=== PATIENT | female | born 1945 | race Caucasian/White ===

== ENCOUNTER 2021-12-04 11:54 | Outpatient (CLI) | payer MEDICARE, SELFPAY ==
--- NOTE | 2021-12-04 12:20 | RAD_ITS ---
STUDY: X-RAY - ABDOMEN/PELVIS REASON FOR EXAM: Female, 76 years old. CALCULUS OF KIDNEY TECHNIQUE: Single AP view of the abdomen / pelvis. COMPARISON: None. FINDINGS: Normal visualized lung bases. There is an unremarkable bowel gas pattern. There is no demonstrated free abdominal air. Right ureteral stent. No obvious renal ureteral stone. Normal soft tissue structures. Normal visualized osseous structures. RAD/Abdomen Single View IMPRESSION: Right ureteral stent. Electronically Signed: Ilya Arteaga MD at 17:12 EST Tel , Service support ,
== END 2021-12-04 23:59 | disposition short-term general hospital (02) ==
LOC: RAD.FUTURE 12:01 → RAD 12:09
PROVIDERS: PCP Family Medicine; Referring Provider Urology; Visit Provider Urology
DX: N20.0 Calculus of kidney (principal)
CPT/HCPCS: 74018

== ENCOUNTER → 2023-01-22 | Outpatient (CLI) | payer MEDICARE, SELFPAY ==
--- NOTE | 2023-01-22 10:20 | RAD_ITS ---
STUDY: X-RAY - ABDOMEN/PELVIS REASON FOR EXAM: Female, 77 years old patient with overactive bladder. TECHNIQUE: Two AP supine views of the abdomen and pelvis. COMPARISON: Radiograph of the abdomen dated December 04, 2021. FINDINGS: Normal visualized lung bases. There is an unremarkable bowel gas pattern. There is no obvious organomegaly, mass, or dilated bowel. Multiple calcifications in the left upper quadrant may represent splenic granulomas. There are also calcifications visible in the right upper quadrant that may represent nonobstructive intrarenal calculi. Left-sided pelvic calcifications may represent phleboliths. Normal soft tissue structures. Normal visualized osseous structures. RAD/Abdomen Single View IMPRESSION: No radiographic evidence of acute intra-abdominal disease. Electronically Signed: Nicolette Sidhu MD at 0:39 EST ,
== END | disposition home or self-care (01) ==
PROVIDERS: Visit Provider Urology
DX: N32.81 Overactive bladder (principal)
CPT/HCPCS: 74018

== ENCOUNTER → 2024-01-23 | Outpatient (CLI) | payer MEDICARE, SELFPAY ==
--- NOTE | 2024-01-23 13:48 | CT_ITS ---
STUDY: CT ABDOMEN AND PELVIS WITHOUT CONTRAST REASON FOR EXAM: Female, 78 years old. CALCULUS OF KIDNEY,OVERACTIVE BLADDER RADIATION DOSAGE (If Supplied By Facility): CTDIvol = ( 14.64 ) mGy, DLP = ( 720.31 ) mGycm TECHNIQUE: Transaxial images were obtained from the dome of the diaphragm to the symphysis pubis without oral contrast, and without intravenous contrast. Sagittal and coronal images were reconstructed. Individualized dose optimization techniques were used for this CT. COMPARISON: Comparison is made with prior study dated April 10, 2011. FINDINGS: Minimal degree of left basilar scarring. Coronary artery calcification. Normal liver. There is nonspecific position of the gallbladder most likely secondary to the prior cholecystectomy. There are multiple benign calcified granulomata of the spleen. Normal pancreas. There is a small, circumscribed, smooth, low attenuation right adrenal mass, consistent with an adrenal adenoma. This measures 9.4 mm. Normal left adrenal gland. The C7 0.3 cm x 5.8 cm cyst in the mid lateral inferior aspect of the right kidney. Nonobstructive right intrarenal calculi are seen. The largest is in the lower pole and measures 7.1 mm. Dominant cyst in the anterior medial inferior pole of the left kidney measuring 4.2 cm x 4.1 cm. There is a small hiatal hernia. Normal small intestine. Normal colon. There are surgical clips in the region of the appendix consistent with a prior appendectomy. There is diffuse atherosclerotic calcification of the abdominal aorta and its major visceral branches, without a demonstrated aneurysm. Normal inferior vena cava. Normal retroperitoneum. Normal urinary bladder. There is absence of the uterus consistent with a prior hysterectomy. Normal abdominal wall. There are mild degenerative changes of the visualized lumbar spine. CT/Abdomen/Pelvis without Cont IMPRESSION: Bilateral renal cysts. Nonobstructive bilateral intrarenal calculi. Electronically Signed: Erik Phillip MD at 14:38 EST ,
--- OUTSIDE RECORDS SUMMARY | 2024-01-23 15:47 | XMS RPT_ITS | CCD ---
Author Name Unknown Address [address] [place] [address] Organization [facility] Care Team Providers Care Chart Calculator Name Role Phone AMARILIS GUERRA, JOSE LUIS Browne Primary Care Physician [phone] STU CROW DO Primary Care Physician Jose Luis Arevalo Primary Care Provider [phone] Stu Crow DO Primary Care Provider [phone] JOSE LUIS AREVALO Primary Care Unavailab RIC Burrows Referring Unavailable RIC DE LA ROSA Attending Unavailable LEANDRO CARLIN Attending Unavailable DIANA PEREZ Referring Unavailable STU CROW Primary Care Unavailable MARIMAR TAYLOR MD Attending Unavail able STU CROW DO Primary Care Unavailable STU CROW DO Attending Unavailable STU CROW DO Primary Care Unavailable STU CROW DO Attending Unavailable STU CROW DO E Primary Care Unavailable STU CROW DO Attending Unavailable STU CROW DO Primary Care Unavailable JADEN RUSHING MD Attending Unavailable STU CROW DO Primary Care Unavailable JADEN RUSHING MD Attending Unavailable STU CROW DO Primary Care Unavailable LINDA ROA-NUBIA ROB Attending Unavailab STU Velasquez DO Primary Care Unavailable SUT CROW DO Attending Unavailable STU CROW DO Primary Care Unavailable ROCK RAO-AVI ROB Attending UnavailSTU Herrera DO Primary Care Unavailable ALDA ROA-ASSISTANT ATTORNEY GENERALKATHY Attending UnavailSTU Herrera DO Primary Care Unavailable JESUS GUERRA, DR JESSIE Jarrell Attending STU Felipe DO Primary Care Unavailable Allergies Allergy Classification Reported Allergen(s) Allergy Type Date of Onset Reaction(s) Facility (14 sources) Penicillin; Translations: [penicillins] Drug Allergy michelle [facility] (3 sources) Penicillin G; Translations: [PENICILLIN G] Drug Allergy 04-26-2022 Other: See Comments, [facility] Medications Current Medications Medication Drug Class(es) Dates Sig (Normalized) Sig (Original) acetaminophen 500 mg oral tablet (4 sources) Start: 11-04-2019 acetaminophen 500 mg oral tablet Dose : 1,000 mg = 2 tab(s), Oral, q6h, PRN for pain, # 100 tab(s), 0 Refill(s) Start Date: 11/04/19 Status: Ordered Completed/Discontinued Medications Medication Drug Class(es) Dates Sig (Normalized) Sig (Original) cholecalciferol 0.125 mg oral tablet (1 source) Vitamin D take 1 tablet by mouth once daily cholecalciferol (VITAMIN D-3) 5,000 unit tab Take 5,000 Units by mouth once daily. 0 Active Problems Active Problems Problem Classification Problem Date Documented Da te Episodic/Chronic Acute cerebrovascular disease (2 sources) Cerebral infarction due to stenosis of carotid artery; Translations: [Ischemic stroke] 01-15-2024 Chronic Blindness and vision defects (6 sources) Visual impairment 09-26-2022 Chronic Calculus of urinary tract (14 sources) Kidney stone; Translations: [History of calculus of kidney] 10-26-2014 Episodic Cardiac dysrhythmias (6 sources) Bradycardia 11-09-2022 Episodic Chronic kidney disease (4 sources) Chronic kidney disease stage 2 07-08-2023 Chronic Conditions associated with dizziness or vertigo (15 sources) Vertigo; Translations: [Lightheadedness] 09-09-2017 Episodic Diabetes mellitus without complication (4 sources) Hyperglycemia 07-08-2023 Episodic Disorders of lipid metabolism (3 sources) Mixed hyperlipidemia 09-30-2023 Chronic Esophageal disorders (10 sources) Gastroesophageal reflux disease 07-02-2022 Chronic Essential hypertension (16 sources) Diastolic hypertension; Translations: [Essential hypertension] Onset: 4 09-01-2021 Chronic Headache; including migraine (1 source) Headache; Translations: [Headache, unspecified] Onset: Episodic Other circulatory disease (1 source) Labile blood pressure 01-15-2024 Episodic Other connective tissue disease (1 source) Pain of right lower leg; Translations: [Pain in right lower leg] Onset: 3 Episodic Other diseases of bladder and urethra (1 source) Overactive bladder; Translations: [Overactive bladder] 08-11-2023 Chronic Other ear and sense organ disorders (12 sources) Tinnitus 10-31-2021 Episodic Other gastrointestinal disorders (10 sources) Constipation 07-02-2022 Episodic Other gastrointestinal disorders (2 sources) Dysphagia 07-02-2022 Episodic Other nutritional; endocrine; and metabolic disorders (6 sources) Body mass index 30+ - obesity 10-06-2022 Chronic Other skin disorders (6 sources) Dry skin 01-07-2023 Episodic Other upper respiratory disease (10 sources) Hoarse 07-02-2022 Episodic Other upper respiratory infections (2 sources) Upper respiratory infection 08-08-2022 Episodic Otitis media and related conditions (2 sources) Otitis media 08-08-2022 Episodic Prolapse of female genital organs (5 sources) Disorder of rectum; Translations: [Rectocele] Onset: 2 Chronic Residual codes; unclassified (10 sources) Edema of lower extremity 07-02-2022 Episodic Residual codes; unclassified (3 sources) Not for resuscitation 09-30-2023 Episodic Spondylosis; intervertebral disc disorders; other back problems (12 sources) Low back pain 11-15-2021 Episodic Unclassified (14 sources) Patient encounter status 12-16-2019 Varicose veins of lower extremity (4 sources) Varicose veins of lower extremity 07-08-2023 Episodic Past or Other Problems Problem Classification Problem Date Documented Da te Episodic/Chronic Genitourinary symptoms and ill-defined conditions (20 sources) Blood in urine; Translations: [Grade A2 albuminuria] Onset: 08-09-2023 11-15-2021 Episodic Results Test Name Value Interpretation Reference Range Facil ity Vital Signs Date Time Vital Sign Value Performing Clinician Facility 12-27-2023 14:20-0500 Body height 157.[address] JESSIE LEE MD [facility] 12-27-2023 14:20-0500 Body temperature 98.42 [degF] DR JESSIE LEE MD [facility] 12-27-2023 14:20-0500 Body weight [address] JESSIE LEE MD [facility] 12-27-2023 14:20-0500 Diastolic Blood Pressure Non-Invasive 82 mm[Hg] DR JESSIE LEE MD [facility] 12-27-2023 14:20-0500 Heart rate 97 /min DR JESSIE LEE MD [facility] 12-27-2023 14:20-0500 Respiratory rate 18 /min DR JESSIE LEE MD [facility] 12-27-2023 14:20-0500 Systolic Blood Pressure Non-Invasive 172 mm[Hg] DR JESSIE LEE MD [facility] 07-04-2023 08:33-0400 Body temperature 98.24 [degF] MARIMAR TAYLOR MD [facility] 07-04-2023 08:33-0400 Diastolic Blood Pressure Non-Invasive 73 1 MARIMAR TAYLOR MD [facility] 07-04-2023 08:33-0400 Heart rate 94 /min MARIMAR TAYLOR MD [facility] 07-04-2023 08:33-0400 Respiratory rate 16 /min MARIMAR TAYLOR MD [facility] 07-04-2023 08:33-0400 Systolic Blood Pressure Non-Invasive 179 1 MARIMAR TAYLOR MD [facility] 07-02-2023 09:29-0400 Body height 154.9 cm Leandro Carlin MD Work Phone: [facility] 07-02-2023 09:29-0400 Body weight 82.56 kg Leandro Carlin MD Work Phone: [facility] 10-12-2022 09:38-0500 Body height 156.2 cm Ric De La Rosa MD Work Phone: [facility] 10-12-2022 09:38-0500 Body weight 80.74 kg Ric De La Rosa MD Work Phone: [facility] Encounters Encounter Date Encounter Type Care Provider Facility Start: 01-20-2024 ambulatory NUBIA MCKEON SIGNAL PROCESSING ENGINEER-ASSISTANT ATTORNEY GENERAL F acility:B Start: 01-15-2024 End: 01-16-2024 ambulatory STU CROW DO Facility:B Start: 01-15-2024 End: 01-20-2024 ambulatory STU CROW DO Facility:[facility] Start: 01-15-2024 End: 01-19-2024 Outreach Lab STU CROW DO [facility] Start: 01-09-2024 End: 01-10-2024 ambulatory JADEN RUSHING MD Facility:[facility] Start: 01-02-2024 End: 01-03-2024 ambulatory JADEN RUSHING MD Facility:[facility] Start: 01-02-2024 End: 01-02-2024 Patient encounter procedure JADEN RUSHING MD [facility] Start: 12-27-2023 End: 12-27-2023 Emergency department patient visit DR JESSIE LEE MD Facility:[facility] Start: 12-27-2023 End: 12-27-2023 Emergency department patient visit DR JESSIE LEE MD [facility] Start: 12-24-2023 End: 12-25-2023 ambulatory STU CROW DO Facility:B Start: 08-09-2023 End: 08-14-2023 ambulatory AVI RUSS SIGNAL PROCESSING ENGINEER-ASSISTANT ATTORNEY GENERAL Facility:B Start: 08-09-2023 End: 08-13-2023 Outreach Lab [facility] SIGNAL PROCESSING ENGINEER-ASSISTANT ATTORNEY GENERAL [facility] Start: 07-17-2023 End: 07-18-2023 ambulatory KATHY LIZAMA SIGNAL PROCESSING ENGINEER-ASSISTANT ATTORNEY GENERAL Facility:B Start: 07-04-2023 End: 07-04-2023 Emergency department patient visit MARIMAR TAYLOR MD Facility:B Start: 07-04-2023 End: 07-04-2023 Emergency department patient visit MARIMAR TAYLOR MD [facility] Start: 07-02-2023 End: 07-02-2023 ambulatory LEANDRO CARLIN Facility:[facility] Start: 07-02-2023 End: 07-02-2023 Patient encounter procedure Leandro Carlin MD Work Phone: Urology Procedures Date Procedure Procedure Detail Performing Clinician Start: 07-02-2023 BLADDER SCAN [facility] Prov[facility] er Start: 07-02-2023 Urnls dip stick/tabl et rgnt auto w/o microscopy Leandro Carlin MD Work Phone: Start: 10-12-2022 Urnls dip stick/tabl et rgnt auto w/o microscopy Ric De La Rosa MD Work Phone: Appendectomy [facility] APR N-ASSISTANT ATTORNEY GENERAL Basal cell carcinoma of nose (disorder) [facility] SIGNAL PROCESSING ENGINEER-ASSISTANT ATTORNEY GENERAL Cataract (morphologi c abnormality) [facility] SIGNAL PROCESSING ENGINEER-ASSISTANT ATTORNEY GENERAL Plan of Treatment Date Care Activity Detail Author Start: 08-02-2023 Influenza vaccination INFLUENZA (#1) [facility] Start: 12-27-2022 COVID-19 VACCINE (6 - Moderna series) COVID-19 VACCINE (6 - Moderna series) [facility] Start: 12-02-2022 ADVANCE DIRECTIVE DISCUSSION ADVANCE DIRECTIVE DISCUSSION [facility] Start: 12-02-2022 DEPRESSION ASSESSMENT DEPRESSION ASS ESSMENT [facility] Start: 06-11-2022 COVID-19 VACCINE (5 - Booster for Moderna series) COVID-19 VACCINE (5 - Booster for Moderna series) [facility] Start: 12-02-2021 ADVANCE DIRECTIVE DISCUSSION ADVANCE DIRECTIVE DISCUSSION [facility] Start: 12-02-2021 DEPRESSION ASSESSMENT DEPRESSION ASS ESSMENT [facility] Start: 2008 BONE DENSITY BONE DENSITY [facility] Start: 2008 PNEUMOCOCCAL: 65+ (1 - PCV) PNEUMOCOCCAL: 65+ (1 - PCV) [facility] Start: 1993 SHINGRIX VACCINE (1 of 2) SIN GRIX VACCINE (1 of 2) [facility] Start: 1988 DIABETES SCREEN DIABETES SCREEN [facility] Start: 1962 Urine microalbumin profile DTAP,TDAP ,TD (1 - Tdap) [facility] Immunizations Immunization Date Immunization Notes Care Provider Fa [facility] 09-30-2023 influenza, high dose seasonal, preservative-free; Translations: [Fluad Quadrivalent PF ] DR JESSIE LEE MD [facility] 09-26-2022 influenza, high dose seasonal, preservative-free STU CROW DO [facility] 08-27-2022 COVID-19, mRNA, LNP- S, bivalent booster, PF, 30 mcg/0.3 mL dose; Translations: [[employer] COVID-19 (12y+) Bivalent Booster Vaccine PF] STU CROW DO [facility] Payers Date Payer Category Payer Medicare [employer] THP [employer] MDCR O [id number] 2008-Present [phone] [place] [id number] O [id number] 2008 Unknown [id number] 1943 Unknown [id number] 7 1943 Unknown [id number] 7 1943 Unknown [id number] 7 1943 Unknown [id number] 7 1943 Unknown [id number] 7 1943 Unknown [id number] 7 1943 Unknown [id number] 7 1943 Unknown [id number] 7 1943 Unknown [id number] [id number] 7 1943 Unknown [id number] 7 1943 Unknown [id number] 7 Social History Date Type Detail Facility Start: 03-23-2019 End: 10-12-2022 Never smoked tobacco (finding) [facility] Sex Assigned At Female [facility] Start: 10-12-2022 Tobacco use and exposure Smokeless tobacco non-user [facility] Start: 10-12-2022 End: 07-02-2023 Alcohol intake Ex-drinker (finding) [facility] Start: 1945 Sex Assigned At Not on file [facility] Start: 07-02-2023 History of Social function [facility] Start: 07-02-2023 Tobacco use panel [facility] National Score (1-100), lower number is lower risk 46 [facility] Functional Status Date Assessment Result Facility 07-04-2023 Functional Status Independent [facility] 07-04-2023 Functional Status Standard Safet y ID band on, Call device within reach, Bed in low position, Wheels locked [facility] Mental Status Date Assessment Result Facility 07-04-2023 Mental Status Orientation Oriented x 4 [facility] 07-04-2023 Mental Status [facility] Clinical Notes 01-01-2022 to 12-27-2023 Leandro Carlin MD - 07/02/2023 10:27 AM Pauline Martinez LPN - 07/02/2023 9:23 AM EDTPatient InstructionsRahumble De La Rosa MD - 10/12/2022 9:46 AM ESTLaboratoryRadiologyRadiologyRadiologyRadiology Note Date & Type Note Facility 12-27-2023 Hospital Discharge instructions Patient Education 12/27/2023 18:26:03 Headache, Unspecified Headache, Unspecified A number of things can cause headaches. The cause of your headache isn t clear. But it doesn t seem to be a sign of any serious illness. Headache affects almost everyone at some time. It is the most common reason people miss days from work or school. You could have a tension headache or a migraine headache. Stress can cause a tension headache. This can happen if you tense the muscles of your shoulders, neck, and scalp without knowing it. If this stress lasts long enough, you may develop a tension headache. It is not clear why migraines occur, but certain things called triggers can raise the risk of having a migraine attack. Migraine triggers may include emotional stress or depression, or by hormone changes during the menstrual cycle. Other triggers include control pills and other medicines, alcohol or caffeine, foods with tyramine (such as aged cheese, wine), eyestrain, weather changes, missed meals, and lack of sleep or oversleeping. Other causes of headache include: Viral illness with high fever Head injury with concussion Sinus, ear, or throat infection Dental pain and jaw joint (TMJ) pain More serious but less common causes of headache include stroke, brain hemorrhage, brain tumor, meningitis, and encephalitis. Home care Follow these tips when taking care of yourself at home: Don t drive yourself home if you were given pain medicine for your headache. Instead, have someone else drive you home. Try to sleep when you get home. You should feel much better when you wake up. Apply heat to the back of your neck to ease a neck muscle spasm. Take care of a migraine headache by putting an ice pack on your forehead or at the base of your skull. If you have nausea or vomiting, eat a light diet until your headache eases. If you have a migraine headache, use sunglasses when in the daylight or around bright indoor lighting until your symptoms get better. Bright glaring light can make this type of headache worse. Follow-up care Follow up with your healthcare provider, or as advised. Talk with your provider if you have frequent headaches. He or she can help figure out a treatment plan. By knowing the earliest signs of headache, and starting treatment right away, you may be able to stop the pain yourself. When to seek medical advice Call your healthcare provider right away if any of these occur: Your head pain suddenly gets worse after sexual intercourse or strenuous activity Your head pain doesn t get better within 24 hours You aren t able to keep liquids down (repeated vomiting) Fever of 100.4 F (38 C) or higher, or as directed by your healthcare provider Stiff neck Extreme drowsiness, confusion, or fainting Dizziness or dizziness with spinning sensation (vertigo) Weakness in an arm or leg or one side of your face You have trouble talking or seeing [phone] [employer]. [address] [place] [address]. All rights reserved. This information is not intended as a substitute for professional medical care. Always follow your healthcare professional's instructions. Follow Up Care 12/27/2023 14:14:08 With:MARYURI HINES Address: [address] [place] [address]- [phone] Business (1) When:2-4 days Comments:Return to ED if symptoms worsen With:STU CROW DO Address: [address] [facility] [place] [address] [phone] When:2-4 days [facility] 12-27-2023 Emergency department Discharge summary Discharge Instructions Thank you for allowing [facility] to assist you with your healthcare needs. The following is important discharge information regarding your hospital visit. Diagnosis from Today's Visit Head pain Headache What to Do Next Instructions from Your Care Team No qualifying data available. Post Acute Orders No qualifying data available. You Need to Schedule the Following Appointments Follow Up with MARYURI HINES When Within 2-4 days Why: Return to ED if symptoms worsen Where: [address] [place] [address]- [phone] Business (1) Follow Up with STU CROW DO When Within 2-4 days Where: [address] [facility] [place], [place] [id number]- [phone] Allergies penicillin (rash) Medications Please ask your primary doctor or pharmacist before taking any other medication not listed, including over the counter drugs, herbal medications, vitamins and or supplements as they may interact with your home medications. What How Much When Why Instructions Last Dose Unchanged acetaminophen (Tylenol 8 Hour) by mouth Every 8 hours Unchanged amLODIPine (amLODIPine 5 mg oral tablet) 1 tab(s) by mouth Two (2) times a day 180 EA Unchanged aspirin (aspirin 81 mg oral delayed release tablet) 1 tab(s) by mouth Every day Unchanged cholecalciferol (Vitamin D3) See instructions qDay 2000iu Unchanged irbesartan (irbesartan 75 mg oral tablet) 1 tab(s) by mouth Once a day Essential hypertension Lower extremity edema Unchanged melatonin Daily at bedtime Unchanged multivitamin (Multivitamin) 1 tab(s) by mouth Every day Unchanged omeprazole (omeprazole 20 mg oral delayed release tablet) 1 tab(s) by mouth Once a day Unchanged polyethylene glycol 3350 (MiraLax oral powder for reconstitution) 17 gram(s) by mouth Two (2) times a day Please take this list to your next doctor s visit. Bring all medications you take, including over the counter medications, herbals and other supplements with you to your doctor s visit. Patients and families are reminded to discard old lists and to update any records with all medication providers or retail pharmacies. Education Materials Headache, Unspecified A number of things can cause headaches. The cause of your headache isn t clear. But it doesn t seem to be a sign of any serious illness. Headache affects almost everyone at some time. It is the most common reason people miss days from work or school. You could have a tension headache or a migraine headache. Stress can cause a tension headache. This can happen if you tense the muscles of your shoulders, neck, and scalp without knowing it. If this stress lasts long enough, you may develop a tension headache. It is not clear why migraines occur, but certain things called triggers can raise the risk of having a migraine attack. Migraine triggers may include emotional stress or depression, or by hormone changes during the menstrual cycle. Other triggers include control pills and other medicines, alcohol or caffeine, foods with tyramine (such as aged cheese, wine), eyestrain, weather changes, missed meals, and lack of sleep or oversleeping. Other causes of headache include: Viral illness with high fever Head injury with concussion Sinus, ear, or throat infection Dental pain and jaw joint (TMJ) pain More serious but less common causes of headache include stroke, brain hemorrhage, brain tumor, meningitis, and encephalitis. Home care Follow these tips when taking care of yourself at home: Don t drive yourself home if you were given pain medicine for your headache. Instead, have someone else drive you home. Try to sleep when you get home. You should feel much better when you wake up. Apply heat to the back of your neck to ease a neck muscle spasm. Take care of a migraine headache by putting an ice pack on your forehead or at the base of your skull. If you have nausea or vomiting, eat a light diet until your headache eases. If you have a migraine headache, use sunglasses when in the daylight or around bright indoor lighting until your symptoms get better. Bright glaring light can make this type of headache worse. Follow-up care Follow up with your healthcare provider, or as advised. Talk with your provider if you have frequent headaches. He or she can help figure out a treatment plan. By knowing the earliest signs of headache, and starting treatment right away, you may be able to stop the pain yourself. When to seek medical advice Call your healthcare provider right away if any of these occur: Your head pain suddenly gets worse after sexual intercourse or strenuous activity Your head pain doesn t get better within 24 hours You aren t able to keep liquids down (repeated vomiting) Fever of 100.4 F (38 C) or higher, or as directed by your healthcare provider Stiff neck Extreme drowsiness, confusion, or fainting Dizziness or dizziness with spinning sensation (vertigo) Weakness in an arm or leg or one side of your face You have trouble talking or seeing [phone] [employer]. [address] [place] [address]. All rights reserved. This information is not intended as a substitute for professional medical care. Always follow your healthcare professional's instructions. Additional Information VACCINATE! IT SAVES LIVES! Members of the community who have not yet received the COVID-19 vaccine and would like to receive it can visit one of [facility] vaccine clinics. There are many vaccine clinic locations within the [facility]. For locations and available times, please visit [email or web address] [email or web address] It is important to note that some COVID mobile vaccine clinics are held outdoors and may be canceled in rainy or stormy conditions. To learn more about pediatric vaccinations (ages 5-11), we invite you to visit the [facility] webpage. [email or web address]/p [email or web address]-Hwtwf-Lmkmeeztpfi-Freq qzopat-[email or web address]-[email or web address] To learn more about the COVID-19 vaccine, we invite you to visit the CDC website for a list of frequently asked questions. https://www.cdc.gov/coronavirus/ 2019-ncov/vaccines/faq.html [facility] Access Instructions: Stay connected with your healthcare team and access your personal medical information anytime with the [facility]. If you would like a full copy of your medical records please contact the [facility] Medical Records Department Saturday through Saturday between 8a.m. and 4:30p.m. Please follow the directions below to access the portal: 1.Access the email account you provided upon registration to the [facility] [address].2.Look for an invitation email from [facility].3.Open the email and access the invitation link: Accept Invitation to [employer]4.Fill in the required mayo to create your account. Sign into [email or web address] with your username and password that you created in the above steps to stay up to date. You can then view a summary of results, a summary of your visits, and the ability to download your summaries to your computer or send the information securely to a physician. Remember that your healthcare information is confidential, so carefully consider who you will allow to register on the [facility] Patient Portal for access to your information. You can also access the [facility] Patient Portal on the [employer] mabel. Simply click on Health Records under [employer] and then click on the Ep[employer] logo. HOW TO SAFELY DISPOSE OF PRESCRIPTION MEDICATIONS Please use one of the following methods to safely dispose of your unused medications. 1.Use a drug disposal kit: the drug disposal pouch allows you to safely discard your old and unused drugs. Ask your nurse to give you one when you are discharged.2.Visit a local take-back location: Many local pharmacies and police departments have programs that collect old and unwanted prescription drugs. Call your local pharmacy or go to http://[employer].Zweemie/9Q5Sv1f to find one close to you.3.Make use of household items: Use cat litter or old coffee grounds to dispose medications if other options are not available. Mix your drugs with these household products, seal them in an airtight container and throw it into the garbage. Call [facility]: [phone] to be sure your drugs can be disposed of in this way. Some medicines may require a different approach.4.Never flush your medications down the toilet. IF YOU HAVE BEEN PRESCRIBED AN OPIOIDS FOR PAIN If you have been prescribed an opioid (such as hydrocodone, oxycodone or morphine), it is critical to understand the possible side effects and risks of opioid pain medications. Even when taken as directed, opioids can have several side effects including: Tolerance, meaning you might need to take more of a medication for the same pain relief. Nausea, vomiting and/or constipation. Sleepiness, dizziness, dry mouth, confusion, depression or itching. Physical dependence, meaning you have withdrawal symptoms when a medication is stopped ? this can develop within a few days. KNOW YOUR RESPONSIBILITIES It is important to know exactly how much and how often to take the opioid pain medications you are prescribed. Never take opioids in higher amounts or more often than prescribed. Do not combine opioids with alcohol or other drugs that cause drowsiness, such as benzodiazepines, also known as benzos, including diazepam and alprazolam, muscle relaxants or sleep aids. Never sell or share prescription opioids. This is illegal. Store opioids in a secure place and out of reach of others (including children, family, friends and visitors). The last page(s) of this document has been signed and retained as a CHART COPY Signatures Patient Education Materials Headache, Unspecified Medication Leaflets My discharge plan and instructions have been reviewed and explained to me and ILINCOLN ALICE E understand my current condition and have read and understand these discharge instructions. I have received a written copy of the plan/instructions. If I have questions, I am aware that I should contact my doctor. 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 Sagittal and coronal images were reconstructed from the axial plane acquisition. Additional 3D reformatted MIP reconstructions were presented to aid in the interpretation of this study. Images were obtained from the skull base through the upper lobes. Contrast: Omnipaque 350 One or more the following dose reduction techniques were used:automated exposure control, adjustment of the mA and/or kV according to patient size, or use of iterative reconstruction technique. Additional comment: None. COMPARISON: Same day CTA head HISTORY: ORDERING SYSTEM PROVIDED HISTORY: Reason for Exam: Headache FINDINGS: Neck Angiogram Aorta: Aortic atherosclerotic calcifications without a hemodynamically significant stenosis. No significant stenosis involving the origins of the innominate, left common carotid and left subclavian arteries. Congenital variation aberrant right subclavian artery (axial image 64 series 3) compressing the posterior upper esophagus. Right common carotid artery: Retropharyngeal course. Calcified and soft plaque of the distal common carotid artery not causing a subjective significant stenosis.. Right internal carotid artery: Calcified and soft plaque causes less than a 50% stenosis.. Right external carotid artery: No hemodynamically significant flow-limiting stenosis. Left common carotid artery: Calcified plaque of the distal common carotid artery without a subjective stenosis. Left internal carotid artery: Diffuse calcified and soft plaque of the carotid bulb extending approximately 21 mm distal to the carotid bifurcation results in a 55% stenosis (axial image 24 series 3). Left external carotid artery: No hemodynamically significant flow-limiting stenosis. V1/V2 vertebral arteries: No hemodynamically significant flow-limiting stenosis. Vertebral artery dominance: Left. Neck Soft tissues: 4 mm nodule in the right lobe of the thyroid gland. No additional imaging is advised. Bones: The osseous structures are demineralized. No acute/recent fracture or significant chronic height loss. Lung apices: Clear. IMPRESSION: 1. 55% stenosis of the left internal carotid artery. 2. Less than a 50% stenosis of the right internal carotid artery. 3. Bilateral antegrade vertebral artery flow without a significant stenosis. 4. Congenital variation aberrant right subclavian artery compressing the posterior upper esophagus. The estimate of the degree of stenosis included in this report is based on the NASCET method for calculating stenosis, using the internal carotid artery distal to the stenosis as the reference point. Interpreted by: Elton Briscoe MD Preliminary Report By: Elton Briscoe MD Electronically signed By Elton Briscoe MD Dictated Date: 12/27/2023 5:02:30 PM Prelim Date: 12/27/2023 5:15:04 PM Sign Date: 12/27/2023 5:15:04 PM Ordering Provider: JESS[facility] 12-27-2023 Note ORIGINAL EXAMINATION: CT Angiogram of the head with intravenous contrast TECHNIQUE: CT angiogram of the head was obtained. Sagittal and coronal reformations and maximum intensity projection reconstructions were provided. Images were obtained before and after the uneventful administration of 100 mL Omnipaque 350. 3D reformatted MIP images were provided One or more of the following dose reduction techniques were used: automated exposure control, adjustment of the mA and/or kV according to patient size, or use of iterative reconstruction technique. DICOM images are available. COMPARISON: Correlated with same day CTA neck HISTORY: ORDERING SYSTEM PROVIDED HISTORY: Reason for Exam: Headache FINDINGS: Cerebral angiogram Aneurysm: 2 mm outpouching off of the right posterior supraclinoid internal carotid artery oriented caudal (sagittal image 37 series 401, axial image 151 series 4). Anterior circulation: Internal carotid arteries:Atherosclerotic calcifications of the bilateral internal carotid siphons resulting in a mszb-zc-apsuzdlh left side stenosis (coronal image 36 series 400, sagittal image 91 series 402). Ophthalmic arteries:The bilateral proximal ophthalmic arteries are patent. Anterior cerebral arteries:No flow-limiting stenosis. A mildly prominent right A2 anterior cerebral artery is seen. Middle cerebral arteries:No flow-limiting stenosis. Posterior cerebral arteries:No significant flow-limiting stenosis. Anterior communicating artery:Present. Posterior communicating arteries:Hypoplastic on the left. Aplastic or hypoplastic on the right. Posterior circulation: Basilar artery:No flow-limiting stenosis. The bibasilar artery is high-riding and tortuous. SCA, AICA, PICA: Bilaterally patent. V3/V4 vertebral arteries:No significant flow-limiting stenosis. Dural venous sinuses:Patent. 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 IMPRESSION: No large vessel occlusion or hemodynamically significant stenosis. 2 mm outpouching off of the right posterior supraclinoid internal carotid arteries roe ting an infundibulum or small aneurysm. Interpreted by: Elton Briscoe MD Preliminary Report By: Elton Briscoe MD Electronically signed By Elton Briscoe MD Dictated Date: 12/27/2023 4:49:35 PM Prelim Date: 12/27/2023 5:02:22 PM Sign Date: 12/27/2023 5:02:22 PM Ordering Provider: [facility] 12-27-2023 Note ORIGINAL HISTORY: Headache COMPARISON: 23 March 2019 TECHNIQUE: Routine non-contrast head CT with sagittal and coronal reconstructions This exam was performed according to our departmental dose optimization program, and includes the following measures where applicable: automated exposure control, adjustment of the mAs and/or kVp according to patient size and/or exam, and an iterative reconstruction algorithm. FINDINGS: The ventricles and sulci are mildly enlarged. There are no abnormal intra or extra-axial fluid collections. There is mild irregular decreased attenuation in the cerebral white matter. Taveras-white matter differentiation is maintained. The calvaria and the bones of the base of the skull are intact. IMPRESSION: Mild volume loss and small vessel ischemic disease. Interpreted by: Tom Bradley MD Preliminary Report By: Tom Bradley MD Electronically signed By Tom Bradley MD Dictated Date: 12/27/2023 3:59:41 PM Prelim Date: 12/27/2023 4:00:30 PM Sign Date: 12/27/2023 4:00:30 PM Ordering Provider: JESSIE [facility] 08-11-2023 Note . MICRO - Microbiology PROCEDURE: Urine Culture [*1] SOURCE: Urine, Clean Catch BODY SITE: COLLECTED DATE/TIME: 08/09/2023 13:34 EDT RECEIVED DATE/TIME: 08/09/2023 20:38 EDT START DATE/TIME: 08/09/2023 20:39 EDT FREE TEXT SOURCE: FINAL REPORTS Final Report [] Verified Date/Time/Personnel: 08/11/2023 07:28 EDT >100,000 cfu/ml Mixed growth consistent with normal urogenital kurtis. PRELIMINARY REPORTS Preliminary Report [] Verified Date/Time/Personnel: 08/10/2023 10:30 EDT No growth to date Performing Locations *1: This test was performed at: [address], [facility] , [facility] ([place]) 07-04-2023 Hospital Discharge instructions Patient Education 07/04/2023 10:01:38 Pain, Acute, Uncertain Cause Acute Pain, Uncertain Cause Pain can be caused by many conditions that range from very minor to very serious. In some cases, though, pain comes and goes with no apparent cause. We were not able to find the exact cause for your pain. At this time there is no sign of any serious illness causing your pain. More tests may be needed to determine the cause. In many cases, pain like this goes away by itself. Home care Take any medicines as prescribed. If another medicine was not prescribed for pain, you can take an usko-xjs-ntkoqat pain medicine such as ibuprofen or acetaminophen. Use these as directed on the label. Follow-up care Follow up with your healthcare provider or our staff as directed. When to seek medical advice Call your healthcare provider for any of the following: Pain changes in pattern Pain doesn't lessen or gets worse New symptoms appear Fever of 100.4 F (38 C) or higher, or as directed by your healthcare provider [id number] [employer]. [address] [place] [address], [place] [address]. All rights reserved. This information is not intended as a substitute for professional medical care. Always follow your healthcare professional's instructions. Follow Up Care 07/04/2023 08:27:34 With:STU CROW DO Address: [address] [place] [phone] When:2-4 days [facility] 07-04-2023 Note Discharge Instructions Thank you for allowing [facility] to assist you with your healthcare needs. The following is important discharge information regarding your hospital visit. Diagnosis from Today's Visit Leg pain-swelling Pain in right leg What to Do Next Instructions from Your Care Team No qualifying data available. Post Acute Orders No qualifying data available. You Need to Schedule the Following Appointments Follow Up with STU CROW DO When Within 2-4 days Where: [address] [place] [address]- [phone] Allergies penicillin (rash) Medications Please ask your primary doctor or pharmacist before taking any other medication not listed, including over the counter drugs, herbal medications, vitamins and or supplements as they may interact with your home medications. What How Much When Why Instructions Last Dose Unchanged acetaminophen (Tylenol 8 Hour) by mouth Every 8 hours Unchanged amLODIPine (amLODIPine 5 mg oral tablet) 180 EA Unchanged aspirin (aspirin 81 mg oral delayed release tablet) 1 tab(s) by mouth Every day Unchanged cholecalciferol (Vitamin D3) See instructions qDay 2000iu Unchanged fluticasone nasal (Flonase 50 mcg/ inh nasal spray) 1 spray(s) each nostril Two (2) times a day Unchanged irbesartan (irbesartan 75 mg oral tablet) 1 tab(s) by mouth Once a day Essential hypertension Lower extremity edema Unchanged melatonin Daily at bedtime Unchanged multivitamin (Multivitamin) 1 tab(s) by mouth Every day Unchanged omeprazole (omeprazole 20 mg oral delayed release tablet) 1 tab(s) by mouth Once a day Unchanged polyethylene glycol 3350 (MiraLax oral powder for reconstitution) 17 gram(s) by mouth Two (2) times a day Unchanged tolterodine (tolterodine 4 mg oral capsule, extended release) 1 cap by mouth Once a day Unchanged vitamin E (vitamin E 400 intl units oral capsule) 1 cap by mouth Every day Please take this list to your next doctor s visit. Bring all medications you take, including over the counter medications, herbals and other supplements with you to your doctor s visit. Patients and families are reminded to discard old lists and to update any records with all medication providers or retail pharmacies. Education Materials Acute Pain, Uncertain Cause Pain can be caused by many conditions that range from very minor to very serious. In some cases, though, pain comes and goes with no apparent cause. We were not able to find the exact cause for your pain. At this time there is no sign of any serious illness causing your pain. More tests may be needed to determine the cause. In many cases, pain like this goes away by itself. Home care Take any medicines as prescribed. If another medicine was not prescribed for pain, you can take an xiiy-com-ewtckol pain medicine such as ibuprofen or acetaminophen. Use these as directed on the label. Follow-up care Follow up with your healthcare provider or our staff as directed. When to seek medical advice Call your healthcare provider for any of the following: Pain changes in pattern Pain doesn't lessen or gets worse New symptoms appear Fever of 100.4 F (38 C) or higher, or as directed by your healthcare provider [phone] [employer]. [address] [place] [address], [place] [address]. All rights reserved. This information is not intended as a substitute for professional medical care. Always follow your healthcare professional's instructions. Additional Information VACCINATE! IT SAVES LIVES! Members of the community who have not yet received the COVID-19 vaccine and would like to receive it can visit one of [facility] vaccine clinics. There are many vaccine clinic locations within the [facility]. For locations and available times, please visit [email or web address] [email or web address] It is important to note that some COVID mobile vaccine clinics are held outdoors and may be canceled in rainy or stormy conditions. To learn more about pediatric vaccinations (ages 5-11), we invite you to visit the [facility] webpage. [email or web address]/p [email or web address]-Nuudf-Pzdkznykxkl-Freq [email or web address]-[email or web address]-[email or web address] To learn more about the COVID-19 vaccine, we invite you to visit the CDC website for a list of frequently asked questions. https://www.cdc.gov/coronavirus/ 2019-ncov/vaccines/faq.html [facility] Patient Portal Access Instructions: Stay connected with your healthcare team and access your personal medical information anytime with the [facility] [employer] Patient Portal. If you would like a full copy of your medical records please contact the [facility] Medical Records Department Saturday through Saturday between 8a.m. and 4:30p.m. Please follow the directions below to access the portal: 1.Access the email account you provided upon registration to the hospital.2.Look for an invitation email from [facility].3.Open the email and access the invitation link: Accept Invitation to [facility]4.Fill in the required mayo to create your account. Sign into [email or web address] with your username and password that you created in the above steps to stay up to date. You can then view a summary of results, a summary of your visits, and the ability to download your summaries to your computer or send the information securely to a physician. Remember that your healthcare information is confidential, so carefully consider who you will allow to register on the [facility] Patient Portal for access to your information. You can also access the [facility] Patient Portal on the [employer] mabel. Simply click on Health Records under Health Data and then click on the [employer] logo. HOW TO SAFELY DISPOSE OF PRESCRIPTION MEDICATIONS Please use one of the following methods to safely dispose of your unused medications. 1.Use a drug disposal kit: the drug disposal pouch allows you to safely discard your old and unused drugs. Ask your nurse to give you one when you are discharged.2.Visit a local take-back location: Many local pharmacies and police departments have programs that collect old and unwanted prescription drugs. Call your local pharmacy or go to http://[employer].Zweemie/3F7Lt6d to find one close to you.3.Make use of household items: Use cat litter or old coffee grounds to dispose medications if other options are not available. Mix your drugs with these household products, seal them in an airtight container and throw it into the garbage. Call [facility]: [phone] to be sure your drugs can be disposed of in this way. Some medicines may require a different approach.4.Never flush your medications down the toilet. IF YOU HAVE BEEN PRESCRIBED AN OPIOIDS FOR PAIN If you have been prescribed an opioid (such as hydrocodone, oxycodone or morphine), it is critical to understand the possible side effects and risks of opioid pain medications. Even when taken as directed, opioids can have several side effects including: Tolerance, meaning you might need to take more of a medication for the same pain relief. Nausea, vomiting and/or constipation. Sleepiness, dizziness, dry mouth, confusion, depression or itching. Physical dependence, meaning you have withdrawal symptoms when a medication is stopped ? this can develop within a few days. KNOW YOUR RESPONSIBILITIES It is important to know exactly how much and how often to take the opioid pain medications you are prescribed. Never take opioids in higher amounts or more often than prescribed. Do not combine opioids with alcohol or other drugs that cause drowsiness, such as benzodiazepines, also known as benzos, including diazepam and alprazolam, muscle relaxants or sleep aids. Never sell or share prescription opioids. This is illegal. Store opioids in a secure place and out of reach of others (including children, family, friends and visitors). The last page(s) of this document has been signed and retained as a CHART COPY Signatures Patient Education Materials Pain, Acute, Uncertain Cause Medication Leaflets My discharge plan and instructions have been reviewed and explained to me and ILINCOLN ALICE E understand my current condition and have read and understand these discharge instructions. I have received a written copy of the plan/instructions. If I have questions, I am aware that I should contact my doctor. 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 Author Type: Physician Type: Progress Notes Filed: 08/11/2023 7:08 PM Note Text: [facility] ESTABLISHED PATIENT NOTE PATIENT: Sommer Balderas (78 year old) PCP: Stu Crow DO DATE OF SERVICE: 07/02/2023 ASSESSMENT: 1. Rectocele 2. Constipation. Symptoms have resolved with management of constipation. The only symptom present is a vaginal bulge if she lifts heavy or is on her feet too long. Continue conservative strategies. Discussed strategies for Replens insertion or a supine position to reduce bulge before insertion. Follow-up as needed. 3. Overactive bladder Continue present management as outlined by local urologist. CHIEF COMPLAINT: Rectocele HISTORY OF PRESENT ILLNESS: The patient has a rectocele and overactive bladder. She was last seen by Dr. Timo De La Rosa MD on 10/12/2022. Prior notes were reviewed. She was initially seen by Dr. Timo De La Rosa MD on the patient on 04/27/2022. The patient also sees a urologist closer to her home, Dr. Zayas, and he manages her overactive bladder symptoms. The patient has a rectocele and constipation. MiraLAX was recommended at her previous visit and her symptoms are much better. She is no longer straining, pushing, splinting or trapping stool. She denies abdominal cramping or bloating. Stools are soft; she has a bowel movement daily after breakfast. Vaginal pressure is no longer present unless she lifts too heavy or she is on her feet too long. With increased pressure, she will see a vaginal bulge and have skin irritation from the rectocele. Replens was recommended for the skin irritation but is difficult to insert with the bulge present. 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 Maldonado. She also has overactive bladder. She is followed by urologist in [place], Dr. Zayas. She has tried tolterodine and Myrbetriq. Tolterodine help with symptoms but caused a lot of dry mouth. She has trialed Biotene and discussed symptoms with her dentist. The patient completed a PFDI-20 and I have reviewed and confirmed the responses documented by my nurse/MA at today's visit. Today's residual Urine Assessment by ultrasound measurements is 97 mL. 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 History of abnormal pap smears: no LMP: Approximately age 36 and status post cyst Menstrual history: Menarche: [age] Sexual function Sexually active: Not sexually active; no partner. is disabled. REVIEW OF SYSTEMS: Genitourinary: SeeHPI Constitutional: unintentional weight loss - denies, fevers - denies Cardiovascular: new or worsening chest pain - denies Respiratory: new or worsening shortness of breath - denies Gastrointestinal: constipation - denies, vomiting - denies Hematologic/Lymphatic: easy bleeding or bruising - denies ALLERGIES: ALLERGIES Allergen Reactions Penicillin G Rash MEDICATIONS: irbesartan (AVAPRO) 75 mg tablet cholecalciferol (VITAMIN D-3) 5,000 unit tab Take 5,000 Units by mouth once daily. omeprazole (PRILOSEC) 40 mg capsule Take 40 mg by mouth once daily. Multivitamin capsule Take 1 capsule by mouth once daily. Acetaminophen 500 mg cap Take by mouth as needed. aspirin 81 mg cap Take by mouth once daily. tolterodine ER (DETROL LA) 4 mg 24 hr capsule Take 4 mg by mouth once daily. (Patient not taking: Reported on 07/02/2023) PAST HISTORY: PAST MEDICAL HISTORY Diagnosis Date Diastolic hypertension Encounter for cholecystectomy H/O lithotripsy H/O total hysterectomy with bilateral salpingo-oophorectomy (BSO) Hx of appendectomy Skin graft PAST SURGICAL HISTORY Procedure Laterality Date APPENDECTOMY CATARACT BLK CHOLECYSTECTOMY COLPOPEXY ABDOMINAL APPR LITHOTRIPSY SKIN GRAFT HX TOTAL ABDOMINAL HYSTERECT W/WO RMVL TUBE OVARY FAMILY HISTORY Problem Relation Age of Onset Cancer Mother Hypertension Mother Hypertension Father Breast Cancer Sister other (mental disable) Sister Hypertension Sister Heart Attack Brother Hypertension Brother Melanoma Brother Social History Tobacco Use Smoking status: Never Smokeless tobacco: Never Substance Use Topics Alcohol use: Not Currently Drug use: Never PHYSICAL EXAMINATION: Ht 154.9 cm (5' 1 ) Wt 82.6 kg (182 lb) BMI 34.39 kg/m? Constitutional: In (more content not included)... [facility] 07-02-2023 Note HNO ID: [id number] Author: Pauline Dubon LPN Service: ? Author Type: LICENSED NURSE Type: Progress Notes Filed: 08/11/2023 7:08 PM Note Text: Medical and Symptom History: PFDI-20 Do you: Usually experience pressure in the lower abdomen? Yes, somewhat bothersome (2) Usually experience heaviness or dullness in the pelvic area? Yes, moderately bothersome (3) Usually have a bulge or something falling out that you can see or feel in your vaginal area? Yes, quite a bit bothersome (4) Ever have to push on the vagina or around the rectum to have or complete a bowel movement? Yes, not at all bothersome (1) Usually experience a feeling of incomplete bladder emptying? Yes, somewhat bothersome (2) Ever have to push up on a bulge in the vaginal area with your fingers to start or complete urination? No (0) Feel you need to strain too hard to have a bowel movement? No (0) Feel you have not completely emptied your bowels at the end of a bowel movement? No (0) Usually lose stool beyond your control if your stool is well formed? No (0) Usually lose stool beyond your control if your stool is loose? Yes, not at all bothersome (1) Usually lose gas from the rectum beyond your control? Yes, somewhat bothersome (2) Usually have pain when you pass your stool? No (0) Experience a strong sense of urgency and have to clark to the bathroom to have a bowel movement? Yes, moderately bothersome (3) Does part of your bowel ever pass through the rectum and bulge outside during or after a bowel movement? No (0) Usually experience frequent urination? Yes, moderately bothersome (3) Usually experience urine leakage associated with a feeling of urgency, that is, a strong sensation of needing to go to the bathroom? Yes, moderately bothersome (3) Usually experience urine leakage related to coughing, sneezing or laughing? Yes, somewhat bothersome (2) Usually experience small amounts of urine leakage (that is, drops)? Yes, somewhat bothersome (2) Usually experience difficulty emptying your bladder? Yes, somewhat bothersome (2) Usually experience pain or discomfort in the lower abdomen or genital region? Yes, not at all bothersome (1) Do you have pain associated with your prolapse (not pressure or fullness) No [facility] 07-02-2023 History of Present illness Narrative [facility] ESTABLISHED PATIENT NOTE PATIENT: Sommer Balderas (78 year old) PCP: Stu Crow DO DATE OF SERVICE: 07/02/2023 ASSESSMENT: 1. Rectocele 2. Constipation. Symptoms have resolved with management of constipation. The only symptom present is a vaginal bulge if she lifts heavy or is on her feet too long. Continue conservative strategies. Discussed strategies for Replens insertion or a supine position to reduce bulge before insertion. Follow-up as needed. 3. Overactive bladder Continue present management as outlined by local urologist. CHIEF COMPLAINT: Rectocele HISTORY OF PRESENT ILLNESS: The patient has a rectocele and overactive bladder. She was last seen by Dr. Timo De La Rosa MD on 10/12/2022. Prior notes were reviewed. She was initially seen by Dr. Timo De La Rosa MD on the patient on 04/27/2022. The patient also sees a urologist closer to her home, Dr. Zayas, and he manages her overactive bladder symptoms. The patient has a rectocele and constipation. MiraLAX was recommended at her previous visit and her symptoms are much better. She is no longer straining, pushing, splinting or trapping stool. She denies abdominal cramping or bloating. Stools are soft; she has a bowel movement daily after breakfast. Vaginal pressure is no longer present unless she lifts too heavy or she is on her feet too long. With increased pressure, she will see a vaginal bulge and have skin irritation from the rectocele. Replens was recommended for the skin irritation but is difficult to insert with the bulge present. 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 Maldonado. She also has overactive bladder. She is followed by urologist in [place], Dr. Zayas. She has tried tolterodine and Myrbetriq. Tolterodine help with symptoms but caused a lot of dry mouth. She has trialed Biotene and discussed symptoms with her dentist. The patient completed a PFDI-20 and I have reviewed and confirmed the responses documented by my nurse/MA at today's visit. Today's residual Urine Assessment by ultrasound measurements is 97 mL. 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 History of abnormal pap smears: no LMP: Approximately age 36 and status post cyst Menstrual history: Menarche: 11-10 Sexual function Sexually active: Not sexually active; no partner. is disabled. REVIEW OF SYSTEMS: Genitourinary: SeeHPI Constitutional: unintentional weight loss - denies, fevers - denies Cardiovascular: new or worsening chest pain - denies Respiratory: new or worsening shortness of breath - denies Gastrointestinal: constipation - denies, vomiting - denies Hematologic/Lymphatic: easy bleeding or bruising - denies ALLERGIES: ALLERGIES Allergen Reactions Penicillin G Rash MEDICATIONS: irbesartan (AVAPRO) 75 mg tablet cholecalciferol (VITAMIN D-3) 5,000 unit tab Take 5,000 Units by mouth once daily. omeprazole (PRILOSEC) 40 mg capsule Take 40 mg by mouth once daily. Multivitamin capsule Take 1 capsule by mouth once daily. Acetaminophen 500 mg cap Take by mouth as needed. aspirin 81 mg cap Take by mouth once daily. tolterodine ER (DETROL LA) 4 mg 24 hr capsule Take 4 mg by mouth once daily. (Patient not taking: Reported on 07/02/2023) PAST HISTORY: PAST MEDICAL HISTORY Diagnosis Date Diastolic hypertension Encounter for cholecystectomy H/O lithotripsy H/O total hysterectomy with bilateral salpingo-oophorectomy (BSO) Hx of appendectomy Skin graft PAST SURGICAL HISTORY Procedure Laterality Date APPENDECTOMY CATARACT BLK CHOLECYSTECTOMY COLPOPEXY ABDOMINAL APPR LITHOTRIPSY SKIN GRAFT HX TOTAL ABDOMINAL HYSTERECT W/WO RMVL TUBE OVARY FAMILY HISTORY Problem Relation Age of Onset Cancer Mother Hypertension Mother Hypertension Father Breast Cancer Sister other (mental disable) Sister Hypertension Sister Heart Attack Brother Hypertension Brother Melanoma Brother Social History Tobacco Use Smoking status: Never Smokeless tobacco: Never Substance Use Topics Alcohol use: Not Currently Drug use: Never PHYSICAL EXAMINATION: Ht 154.9 cm (5' 1 ) Wt 82.6 kg (182 lb) BMI 34.39 kg/m Constitutional: In no acute distress. Well appearing. Appears stated age. HEENT: Head is normocephalic. Atraumatic. Well-healed surgical incision status post excision skin lesion nasolabial fold. Respiratory: Normal respiratory effort without use of accessory muscles. Musculoskeletal: Normal gait. Ambulates without assistance. Cardiovascular: Regular rate. Capillary refill less than 3 seconds. Gastrointestinal: Nondistended. No ventral hernia. Well-healed surgical incision midline. Genitourinary/Pelvic: External genitalia without rash or lesion. Urethral meatus normal without prolapse, stenosis, or bleeding. No skene's gland abnormality Urethra normal without tenderness, scarring, or diverticulum. Urethra mobile Cough stress test negative. Filled stress test not performed. Intravaginal palpation of the bladder normal. Vaginal tissues show moderate to severe atrophic changes. No abnormal discharge or lesion. Cervix and uterus are surgically absent. No masses or bimanual pelvic floor tone normal. Half speculum exam reveals prolapse. Dolores well supported. Rectocele extends into the vault. POP-Q: Prolapse Noted: Yes Aa = 0 Ba = 0 C = -12.5 gh = 5.0 pb = 3.5 tvl = 13 Ap = +1.0 Bp = +1.0 Digital rectal exam: Normal resting tone. Normal squeeze tone.. Body fairly intact. DATA: Clinic: URINALYSIS: GLUCOSE UA (POCT) Negative 07/02/2023 BILIRUBIN UA (POCT) Negative 07/02/2023 KETONE UA (POCT) Negative 07/02/2023 SPECIFIC GRAVITY UA (POCT) 1.010 07/02/2023 HEMOGLOBIN/BLOOD UA (POCT) Trace-intact 07/02/2023 PH UA (POCT) 6.5 07/02/2023 PROTEIN UA (POCT) Negative 07/02/2023 UROBILINOGEN UA (POCT) 0.2 07/02/2023 NITRITE UA (POCT) Negative 07/02/2023 LEUKOCYTES UA (POCT) Trace 07/02/2023 COLOR UA (POCT) Yellow 07/02/2023 CLARITY UA (POCT) Clear 07/02/2023 Laboratory: No results found for: CREAT Cultures: No flowsheet data found. Susceptibility Tests - Past 1 Year No results found for the last 365 days. I have reviewed the problem list, family history, and social history documented by my ancillary staff. [employer] offered:Patient accepts, visit chaperoned by Pauline Dubon LPN. I spent a total of 35 minutes on the date of the service which included preparing to see the patient, [id number] patient care, completing clinical documentation, counseling and educating the patient/family/caregiver, and ordering medications, tests, or procedures. Leandro Carlin MD Staff Urologist Medical and Symptom History: PFDI-20 Do you: Usually experience pressure in the lower abdomen? Yes, somewhat bothersome (2) Usually experience heaviness or dullness in the pelvic area? Yes, moderately bothersome (3) Usually have a bulge or something falling out that you can see or feel in your vaginal area? Yes, quite a bit bothersome (4) Ever have to push on the vagina or around the rectum to have or complete a bowel movement? Yes, not at all bothersome (1) Usually experience a feeling of incomplete bladder emptying? Yes, somewhat bothersome (2) Ever have to push up on a bulge in the vaginal area with your fingers to start or complete urination? No (0) Feel you need to strain too hard to have a bowel movement? No (0) Feel you have not completely emptied your bowels at the end of a bowel movement? No (0) Usually lose stool beyond your control if your stool is well formed? No (0) Usually lose stool beyond your control if your stool is loose? Yes, not at all bothersome (1) Usually lose gas from the rectum beyond your control? Yes, somewhat bothersome (2) Usually have pain when you pass your stool? No (0) Experience a strong sense of urgency and have to clark to the bathroom to have a bowel movement? Yes, moderately bothersome (3) Does part of your bowel ever pass through the rectum and bulge outside during or after a bowel movement? No (0) Usually experience frequent urination? Yes, moderately bothersome (3) Usually experience urine leakage associated with a feeling of urgency, that is, a strong sensation of needing to go to the bathroom? Yes, moderately bothersome (3) Usually experience urine leakage related to coughing, sneezing or laughing? Yes, somewhat bothersome (2) Usually experience small amounts of urine leakage (that is, drops)? Yes, somewhat bothersome (2) Usually experience difficulty emptying your bladder? Yes, somewhat bothersome (2) Usually experience pain or discomfort in the lower abdomen or genital region? Yes, not at all bothersome (1) Do you have pain associated with your prolapse (not pressure or fullness) No documented in this encounter [facility] 07-02-2023 Instructions Leandro Carlin MD - 07/02/2023 10:06 AM EDT An anticholinergic was prescribed for your overactive bladder. Examples of these medications include the following: Oxybutynin (Ditropan), Solifenacin (Vesicare), tolterodine (Detrol), trospium (Sanctura), fesoterodine (Toviaz). More common side effects of these medications include dry mouth, dry eyes, and constipation. A small percentage of people may also experience overheating, gastric reflux or dementia. To alleviate dry mouth, we recommend chewing sugarless gum or using [id number]-[id number] products made by [employer]. Drinking more fluid will not alleviate the dry mouth. To alleviate dry eyes, purchase some artificial tears. To prevent constipation, eat enough fiber (sources include fruits and vegetables) and stay hydrated. We also recommend this bowel regulation recipe. See below Recipe to prevent constipation 1 cup of applesauce 1 cup oat bran or wheat bran (uncooked) 1 cup prune juice Mix together the applesauce, oat or wheat bran, and prune juice until well combined. Begin by taking 1 to 2 tablespoons of the mixture each evening or morning, followed by a glass of water. I recommend spreading it on raisin toast, apple slices or ngoc crackers. If after 2 weeks of daily use, no change in regularity occurs, increase to 3 to 4 tablespoons daily. Store in your refrigerator or freezer. You can freeze the mixture an ice cube trays and 2 tablespoon portions for easy deep frosting. documented in this encounter [facility] 10-12-2022 Note HNO ID: [id number] Author: Ric De La Rosa MD Service: ? Author Type: Physician Type: Progress Notes Filed: 10/12/2022 10:08 AM Note Text: ESTABLISHED PATIENT VISIT HPI Sommer Balderas is a 77 year old female who presents with a rectocele. Miralax is helping her constipation. No new symptoms from the rectocele. Discussed risks and benefits of surgery. She will consider surgery in the Spring. GLUCOSE UA (POCT) Negative 04/27/2022 BILIRUBIN UA (POCT) Negative 04/27/2022 KETONE UA (POCT) Negative 04/27/2022 SPECIFIC GRAVITY UA (POCT) 1.010 04/27/2022 HEMOGLOBIN/BLOOD UA (POCT) Trace-lysed 04/27/2022 PH UA (POCT) 7.0 04/27/2022 PROTEIN UA (POCT) Negative 04/27/2022 UROBILINOGEN UA (POCT) 0.2 04/27/2022 NITRITE UA (POCT) Negative 04/27/2022 LEUKOCYTES UA (POCT) Negative 04/27/2022 COLOR UA (POCT) Yellow 04/27/2022 CLARITY UA (POCT) Clear 04/27/2022 REVIEW OF SYSTEMS GENERAL:No weight loss, malaise or fevers., SEE HPI GENITOURINARY: See HPI CONSTITUTIONALl: No recent fever or weight loss ALLERGIES Allergen Reactions Penicillin G Other: See Comments HISTORIES PAST MEDICAL HISTORY Diagnosis Date Diastolic hypertension Encounter for cholecystectomy H/O lithotripsy H/O total hysterectomy with bilateral salpingo-oophorectomy (BSO) Hx of appendectomy Skin graft FAMILY HISTORY Problem Relation Age of Onset Cancer Mother Hypertension Mother Hypertension Father Breast Cancer Sister other (mental disable) Sister Hypertension Sister Heart Attack Brother Hypertension Brother Melanoma Brother Social History Tobacco Use Smoking status: Never Smokeless tobacco: Never Substance Use Topics Alcohol use: Not Currently Drug use: Never MEDICATIONS: Multivitamin capsule Take 1 capsule by mouth once daily. tolterodine ER (DETROL LA) 4 mg 24 hr capsule Take 4 mg by mouth once daily. Acetaminophen 500 mg cap Take by mouth as needed. amLODIPine (NORVASC) 2.5 mg tablet Take 5 mg by mouth twice daily. aspirin 81 mg cap Take by mouth once daily. Vitamin E, dl, acetate, (VITAMIN E) 400 unit capsule Take 400 Units by mouth once daily. imipramine HCl (TOFRANIL) 10 mg tablet Take 10 mg by mouth daily at bedtime. (Patient not taking: Reported on 04/27/2022 ) Physical Exam Height 156.2 cm (5' 1.5 ) Weight 81.6 kg (180 lb) Body Mass Index 33.46 kg/m? ASSESSMENT/PLAN: (N81.6) Rectocele (primary encounter diagnosis) [facility] 10-12-2022 History of Present illness Narrative ESTABLISHED PATIENT VISIT HPI Sommer Balderas is a 77 year old female who presents with a rectocele. Miralax is helping her constipation. No new symptoms from the rectocele. Discussed risks and benefits of surgery. She will consider surgery in the Spring. GLUCOSE UA (POCT) Negative 04/27/2022 BILIRUBIN UA (POCT) Negative 04/27/2022 KETONE UA (POCT) Negative 04/27/2022 SPECIFIC GRAVITY UA (POCT) 1.010 04/27/2022 HEMOGLOBIN/BLOOD UA (POCT) Trace-lysed 04/27/2022 PH UA (POCT) 7.0 04/27/2022 PROTEIN UA (POCT) Negative 04/27/2022 UROBILINOGEN UA (POCT) 0.2 04/27/2022 NITRITE UA (POCT) Negative 04/27/2022 LEUKOCYTES UA (POCT) Negative 04/27/2022 COLOR UA (POCT) Yellow 04/27/2022 CLARITY UA (POCT) Clear 04/27/2022 REVIEW OF SYSTEMS GENERAL:No weight loss, malaise or fevers., SEE HPI GENITOURINARY: See HPI CONSTITUTIONALl: No recent fever or weight loss ALLERGIES Allergen Reactions Penicillin G Other: See Comments HISTORIES PAST MEDICAL HISTORY Diagnosis Date Diastolic hypertension Encounter for cholecystectomy H/O lithotripsy H/O total hysterectomy with bilateral salpingo-oophorectomy (BSO) Hx of appendectomy Skin graft FAMILY HISTORY Problem Relation Age of Onset Cancer Mother Hypertension Mother Hypertension Father Breast Cancer Sister other (mental disable) Sister Hypertension Sister Heart Attack Brother Hypertension Brother Melanoma Brother Social History Tobacco Use Smoking status: Never Smokeless tobacco: Never Substance Use Topics Alcohol use: Not Currently Drug use: Never MEDICATIONS: Multivitamin capsule Take 1 capsule by mouth once daily. tolterodine ER (DETROL LA) 4 mg 24 hr capsule Take 4 mg by mouth once daily. Acetaminophen 500 mg cap Take by mouth as needed. amLODIPine (NORVASC) 2.5 mg tablet Take 5 mg by mouth twice daily. aspirin 81 mg cap Take by mouth once daily. Vitamin E, dl, acetate, (VITAMIN E) 400 unit capsule Take 400 Units by mouth once daily. imipramine HCl (TOFRANIL) 10 mg tablet Take 10 mg by mouth daily at bedtime. (Patient not taking: Reported on 04/27/2022 ) Physical Exam Height 156.2 cm (5' 1.5 ) Weight 81.6 kg (180 lb) Body Mass Index 33.46 kg/m ASSESSMENT/PLAN: (N81.6) Rectocele (primary encounter diagnosis) documented in this encounter [facility] 08-08-2022 SARS-CoV-2 (COVID-19) RNA VALENTINO+probe Ql (Nph) Negative *NA* (08/08/22 2:31 PM) AO Auto Urine SS 07-23-2022 Note ORIGINAL EXAMINATION: BONE DENSITOMETRY07/23/2022 1:44 pm TECHNIQUE: Dual energy bone densitometry lumbar spine and left hip. COMPARISON: 12/17/2016 HISTORY: Reason for Exam: Osteoporosis Screening FINDINGS: T Score Left Femoral Neck: -0.6 Left Femoral Neck: 0.785 (g/cm2) T Score Left Hip: 0.7 Left Hip: 1.031 (g/cm2) T Score Lumbar Spine: -0.2 Lumbar Spine: 1.030 (g/cm2) BMD Change from previous Hip: -1.4% BMD Change from previous Lumbar Spine: 1.3% IMPRESSION: Normal bone mineral density. Interpreted by: Tereso Perez MD Preliminary Report By: Tereso Perez MD Electronically signed By Tereso Perez MD Dictated Date: 07/23/2022 2:38:02 PM Prelim Date: 07/23/2022 2:41:32 PM Sign Date: 07/23/2022 2:41:32 PM Ordering Provider: [facility] 07-23-2022 Note ORIGINAL EXAMINATION: BONE DENSITOMETRY07/23/2022 1:44 pm TECHNIQUE: Dual energy bone densitometry lumbar spine and left hip. COMPARISON: 12/17/2016 HISTORY: Reason for Exam: Osteoporosis Screening FINDINGS: T Score Left Femoral Neck: -0.6 Left Femoral Neck: 0.785 (g/cm2) T Score Left Hip: 0.7 Left Hip: 1.031 (g/cm2) T Score Lumbar Spine: -0.2 Lumbar Spine: 1.030 (g/cm2) BMD Change from previous Hip: -1.4% BMD Change from previous Lumbar Spine: 1.3% IMPRESSION: Normal bone mineral density. Interpreted by: Tereso Perez MD Preliminary Report By: Tereso Perez MD Electronically signed By Tereso Perez MD Dictated Date: 07/23/2022 2:38:02 PM Prelim Date: 07/23/2022 2:41:32 PM Sign Date: 07/23/2022 2:41:32 PM Ordering Provider: [facility] 01-01-2022 Evaluation + Plan note Future Scheduled TestsUrine Culture 01/01/22MA Mammo Screening Bilateral w/ Angel 03/15/21 [facility] Evaluation + Plan note Future Appointments Appointment Date:09/26/2021 10:00:00 AM Scheduled Provider:DIANA PEREZ MD Location: [facility] Appointment Type:[facility] OV Future Scheduled TestsMA Mammo Screening Bilateral w/ Angel 03/15/21 [facility] Evaluation + Plan note Future Appointments Appointment Date:10/30/2021 10:00:00 AM Scheduled Provider:DIANA PEREZ MD Location: [facility] Appointment Type:[facility] OV Future Scheduled TestsMA Mammo Screening Bilateral w/ Angel 03/15/21 [facility] Evaluation + Plan note Future Appointments Appointment Date:06/06/2022 09:30:00 AM Scheduled Provider: Location:[facility] Appointment Type:MA Mammogram Screening Bilateral w/ Angel Future Scheduled TestsUrine Culture 01/01/22 [facility] Evaluation + Plan note Future Appointments Appointment Date:07/23/2022 01:00:00 PM Scheduled Provider: Location:[facility] Appointment Type:BD Bone Density DEXA Axial Skeleton Appointment Date:07/31/2022 11:30:00 AM Scheduled Provider:STU CROW DO Location:[facility] Appointment Type:PC OV Diagnostic Tests PendingVitamin D Level 07/09/22 Future Scheduled TestsUrine Culture 01/01/22BD Bone Density DEXA Axial Skeleton 07/23/22 [facility] Evaluation + Plan note Future Appointments Appointment Date:07/31/2022 11:30:00 AM Scheduled Provider:STU CROW DO Location:[facility] Appointment Type:PC OV Future Scheduled TestsUrine Culture 01/01/22 [facility] Evaluation + Plan note Future Appointments Appointment Date:09/25/2022 10:30:00 AM Scheduled Provider:STU CROW DO Location:[facility] Appointment Type:PC Wellness Medicare Future Scheduled TestsBasic Metabolic Panel 07/31/22Urine Culture 01/01/22 [facility] Evaluation + Plan note Future Appointments Appointment Date:09/25/2022 10:30:00 AM Scheduled Provider:STU CROW DO Location:[facility] Appointment Type:PC Wellness Medicare Future Scheduled TestsUrine Culture 01/01/22 [facility] Evaluation + Plan note Future Appointments Appointment Date:09/30/2023 11:00:00 AM Scheduled Provider:STU CROW DO Location:[facility] Appointment Type:PC Wellness Medicare Future Scheduled TestsMicroalbumin Level Urine 01/07/23 [facility] Evaluation + Plan note Future Appointments Appointment Date:07/08/2023 08:00:00 AM Scheduled Provider:KATHY LIZAMA Location:[facility] Appointment Type:PC OV ED Follow Up Appointment Date:09/30/2023 11:00:00 AM Scheduled Provider:STU CROW DO Location:[facility] Appointment Type:PC Wellness Medicare Future Scheduled TestsMicroalbumin Level Urine 01/07/23 [facility] Evaluation + Plan note Future Appointments Appointment Date:12/30/2023 03:30:00 PM Scheduled Provider:STU CROW DO Location:[facility] Appointment Type:PC OV Appointment Date:01/20/2024 02:30:00 PM Scheduled Provider:STU CROW DO Location:[facility] Appointment Type:PC OV Appointment Date:10/02/2024 10:30:00 AM Scheduled Provider:STU CROW DO Location:[facility] Appointment Type:PC Wellness Medicare Future Scheduled TestsMicroalbumin Level Urine 01/07/23[facility] Mammo Screening Bilateral w/ Angel 09/30/23BD Bone Density DEXA Axial Skeleton 09/30/23 [facility] Evaluation + Plan note Future Appointments Appointment Date:01/09/2024 10:30:00 AM Scheduled Provider: Location:[facility] Appointment Type:MRI Brain w/ + w/o Contrast Appointment Date:01/20/2024 02:30:00 PM Scheduled Provider:STU CROW DO [facility] Appointment Type:PC OV Appointment Date:10/02/2024 10:30:00 AM Scheduled Provider:STU CROW DO Location:[facility] Appointment Type:PC Wellness Medicare Future Scheduled TestsMicroalbumin Level Urine 01/07/23MA Mammo Screening Bilateral w/ Angel 09/30/23BD Bone Density DEXA Axial Skeleton 09/30/23MRI Brain w/ + w/o Contrast 01/09/24 [facility] Evaluation + Plan note Future Appointments Appointment Date:01/20/2024 09:15:00 AM Scheduled Provider:NUBIA MCKEON Location:[facility] Appointment Type:CV OV Appointment Date:02/18/2024 03:30:00 PM Scheduled Provider:STU CROW DO Location:[facility] Appointment Type:PC OV Appointment Date:05/01/2024 01:30:00 PM Scheduled Provider:LORNE ORTIZ MD Location:[facility] Appointment Type:PC OV Appointment Date:10/02/2024 10:30:00 AM Scheduled Provider:STU CROW DO Location:[facility] Appointment Type:PC Wellness Medicare Future Scheduled TestsMA Mammo Screening Bilateral w/ Angel 09/30/23BD Bone Density DEXA Axial Skeleton 09/30/23MRI Brain w/o Contrast 01/15/24 [facility] [N81.6]- Primary Rectocele Overactive bladder Hypertonicity of bladder [facility] Narrative No data available for this section [facility] Hospital Discharge instructions No data available for this section [facility] Progress note No data available for this section [facility] Summary Purpose Family History No Family History Records Found Advance Directives No Advanced Directives Records FoundNo Advanced Directives Records Found Additional Source Comments Care Team (unrecognized sect ion and content) Chart Calculator Relationship Specialty Start Date End Date Stu Crow DO [address] [place] [address] PCP - General Family Medicine 04/16/23 Care Team (unrecognized sect ion and content) Care Team Personnel Name: STU CROW DO Position: P4 Physician - Primary Care Member Role: Primary Care Physician Address: Address: [address] [place] [address] Care Team Related Persons Name: SHADE BECERRA Care Team Personnel Name: STU CROW DO Position: P4 Physician - Primary Care Member Role: Primary Care Physician Address: Address: [address] [place] [address] Care Team Related Persons Name: SHADE BECERRA Care Team Personnel Name: STU CROW DO Position: P4 Physician - Primary Care Member Role: Primary Care Physician Address: Address: [address] [place] [address] Care Team Related Persons Name: SHADE BECERRA Care Team Personnel Name: STU CROW DO Position: P4 Physician - Primary Care Member Role: Primary Care Physician Address: Address: [address] [place] [address] Care Team Related Persons Name: SHADE BECERRA Source Comments (unrecognize d section and content) In the event this informatio n is protected by the Federal Confidentiality of Alcohol and Drug Abuse Patient Records regulations: The Federal rules restrict any use of the information to criminally investigate or prosecute any alcohol or drug abuse patient.[facility] the event this information is protected by the Federal Confidentiality of Alcohol and Drug Abuse Patient Records regulations: The Federal rules restrict any use of the information to criminally investigate or prosecute any alcohol or drug abuse patient.[facility] Reason for Visit (unrecogniz ed section and content) Specialty Diagnoses / Procedures Referred By Braeden wledon Referred To Contact Urology / UROLOGY Diagnoses Rectocele Constipation, unspecified summer follow up Procedures OFFICE/OUTPATIENT ESTABLISHED MOD MDM 30-39 MIN EST UROL Ric De La Rosa MD [address] [place] [address] Ric De La Rosa MD [address] [place] [address] Referral ID Status Reason Start Date Expiration Date V isits Requested Visits Authorized [id number] Authorized 07/16/2022 12/01/2022 99 99 Reason Comments Rectocele Specialty Diagnoses / Procedures Referred By Braeden weldon Referred To Contact Urology / UROLOGY Diagnoses Rectocele Former [facility] Patient - Rectocele issue Procedures DUP-SCAN UXTR ART/ARTL BPGS UNI/LMTD STUDY OFFICE/OUTPATIENT ESTABLISHED LOW MDM 20-29 MIN EST UROL Diana Perez Effred [address] [facility] [address] [place] [address] Leandro Carlin MD [address] [place] [address] Referral ID Status Reason Start Date Expiration Date V isits Requested Visits Authorized [id number] Authorized 06/19/2023 12/01/2023 99 99 INFORMATION SOURCE (unrecogn ized section and content) DATE CREATED AUTHOR AUTHOR'S ORGANIZ ATION 01/20/2024 [facility] ([place]) FOR RECORDS PERTAINING TO PATIENTS WHO ARE OR HAVE BEEN ENROLLED IN A CHEMICAL DEPENDENCY/SUBSTANCEABUSE PROGRAM, SOME INFORMATION MAY BE OMITTED. This clinical summary was aggregated from multiple sources. Caution should be exercised in using it in the provision of clinical care. This summary normalizes information from multiple sources, and as a consequence, information in this document may materially change the coding, format and clinical context of patient data. In addition, data may be omitted in some cases. CLINICAL DECISIONS SHOULD BE BASED ON THE PRIMARY CLINICAL RECORDS. [facility]. provides no warranty or guarantee of the accuracy or completeness of information in this document.
== END | disposition home or self-care (01) ==
LOC: CT 13:46
PROVIDERS: Referring Provider Urology; Visit Provider Urology
DX: N20.0 Calculus of kidney (principal); N32.81 Overactive bladder
CPT/HCPCS: 74176

== ENCOUNTER → 2024-07-20 | Outpatient (CLI) | payer MEDICARE, SELFPAY | END | disposition home or self-care (01) | LOC: LABSPEC 16:18 | PROVIDERS: Referring Provider Urology; Visit Provider Urology | DX: R10.9 Unspecified abdominal pain (principal) | CPT/HCPCS: 87086; 87088; 87186 ==

== ENCOUNTER → 2024-07-29 | Outpatient (CLI) | payer MEDICARE, SELFPAY ==
--- NOTE | 2024-07-29 14:27 | CT_ITS ---
STUDY: CT ABDOMEN AND PELVIS WITHOUT CONTRAST REASON FOR EXAM: Female, 79 years old. ABD PAIN-right with uti''s RADIATION DOSAGE (If Supplied By Facility): CTDIvol = ( 15.90 ) mGy, DLP = ( 767.49 ) mGycm TECHNIQUE: Transaxial images were obtained from the dome of the diaphragm to the symphysis pubis without oral contrast, and without intravenous contrast. Sagittal and coronal images were reconstructed. Individualized dose optimization techniques were used for this CT. COMPARISON: Comparison is made with prior study of January 23, 2024. FINDINGS: Calcified right infrahilar lymph node. Coronary artery calcification. Normal liver. The patient is status post cholecystectomy. There are multiple benign calcified granulomata of the spleen. Normal pancreas. There is a small, circumscribed, smooth, low attenuation right adrenal mass, consistent with an adrenal adenoma. This is unchanged and measures 9.4 mm. Normal left adrenal gland. Stable bilateral renal cysts. Stable nonobstructive right intrarenal calculi. The largest is in the lower pole and measures 7.1 mm. Normal visualized stomach. Normal small intestine. There are multiple colonic diverticula consistent with diverticulosis. The patient is status post appendectomy. There is diffuse atherosclerotic calcification of the abdominal aorta and its major visceral branches, without a demonstrated aneurysm. Normal inferior vena cava. Normal retroperitoneum. Normal urinary bladder. There is absence of the uterus consistent with a prior hysterectomy. Normal abdominal wall. There are degenerative changes of the visualized lumbar spine. CT/Abdomen/Pelvis without Cont IMPRESSION: Stable bilateral renal cysts and right nonobstructive intrarenal calculi. Calcified splenic granulomas. Status post hysterectomy, appendectomy and cholecystectomy. Electronically Signed: Erik Phillip MD at 15:03 EDT ,
== END | disposition home or self-care (01) ==
PROVIDERS: Referring Provider Urology; Visit Provider Urology
DX: R10.9 Unspecified abdominal pain (principal)
CPT/HCPCS: 74176

== ENCOUNTER → 2025-01-18 | Outpatient (CLI) | payer MEDICARE, SELFPAY ==
--- NOTE | 2025-01-18 10:15 | RAD_ITS ---
EXAM: XR Abdomen, 1 View CLINICAL INDICATION: TECHNIQUE: Frontal supine view of the abdomen/pelvis. COMPARISON: No relevant prior studies available. FINDINGS: GASTROINTESTINAL TRACT: Fecal retention in the colon consistent with constipation. No dilation. ORGANS: Right nephrolithiasis. BONES/JOINTS: Unremarkable. No acute fracture. RAD/Abdomen Single View IMPRESSION: 1. Fecal retention in the colon consistent with constipation. 2. Right nephrolithiasis. Reading Location: [facility]
== END | disposition home or self-care (01) ==
LOC: RAD 10:04
PROVIDERS: Referring Provider Urology; Visit Provider Urology
DX: N20.0 Calculus of kidney (principal)
CPT/HCPCS: 74018